=== PATIENT | male | born 1955 | race Caucasian/White ===

== ENCOUNTER 2019-12-29 18:07 | Inpatient (IN) | payer MEDICARE, OTHER ==
[2019-12-29] MEDS ORDERED: Maalox 30 mL Cup PO PRN (20:55)
[2019-12-29] MEDS ORDERED: Magnesium Hydroxide (MOM) 30 mL UDC PO PRN (20:55)
[2019-12-30] MEDS ORDERED: Triamcinolone Acet 0.5% Cream 15 gm TP SCH (09:00)
[2019-12-30] MEDS: Triamcinolone Acet 0.5% Cream 15 gm TP SCH (10:15)
--- NOTE | 2019-12-30 10:26 | Psychiatric Evaluation ---
DATE OF SERVICE: 12/30/2019 HISTORY OF PRESENT ILLNESS: A 64-year-old male coming into the hospital on a hold. Apparently, he was in a town far from his home, not wearing any pants or shorts, disoriented, did not have a shirt or jacket on, it was cold outside. Police were concerned. On [id number], the patient notes he was confused, "I did not know where I was." He states he did not know how he got to that town. The patient is AO now to name, place, situation, month and year. Fair sleep, fair appetite. PAST PSYCHIATRIC HISTORY: He denies. FAMILY HISTORY: Noncontributory. SOCIAL HISTORY: He states he was born in [place], ; 3 kids, they are adults. Lives alone. No drugs, alcohol or tobacco per the patient. MEDICATIONS: Noted. MENTAL STATUS EXAMINATION: Stated age. Fair eye contact. Somewhat unkempt, disheveled, grossly linear. No SI, no HI, no overt psychotic symptoms ____ insight. PROVISIONAL DIAGNOSES: Psychosis, unspecified; possible fugue state, under medical. Please see full H and P. Rule out possible dementia. ESTIMATED LENGTH OF STAY: 5 to 7 days. ASSESSMENT: The patient requiring hospitalization, is confused, concerns for his ability to care for his basic needs. TREATMENT PLAN: Includes group as well as milieu therapy. CONDITIONS FOR DISCHARGE: Improved mood, improved affect, better control of his confusional state. JOB# [id number]
--- NOTE | 2019-12-30 12:33 | History & Physical ---
ADMIT DATE: 12/30/2019 CHIEF COMPLAINT: "I am fine doctor." HISTORY OF PRESENT ILLNESS: A 64-year-old male admitted at [facility] for psychiatric treatment after the patient presented to Emergency Room by EMS when the patient was roaming around an intersection and appeared to be lost. The patient was diagnosed to have gravely disabled and now the patient is admitted here. PAST MEDICAL HISTORY: Remarkable for: 1. Hypertension. 2. Hyperlipidemia. 3. Degenerative joint disease. 4. Chronic skin disorder involving his upper and lower extremity. MEDICATIONS AT HOME: The patient is taking hydroxyzine, ketaconazole, doxycycline, and triamcinolone cream. ALLERGIES: THE PATIENT IS ALLERGIC TO PENICILLIN, DOXYCYCLINE WELL SULFA. SOCIAL HISTORY: The patient is currently retired, used to work for [employer] industry. The patient does admit to smoke cigarettes, alcohol and occasional street drug use. FAMILY MEDICAL HISTORY: Remarkable for liver cancer. PAST SURGICAL HISTORY: None. REVIEW OF SYSTEMS: The patient currently denies any headache, blurred vision, double vision, dysphagia, odynophagia, runny nose, stuffy nose, fever, chills, cough, chest pain, shortness of breath, palpitation, dizziness, nausea, vomiting, diarrhea, dysuria, hematuria, hematochezia, melena. No history of any seizure or syncopal episode. The patient continues to complain of the itchiness involving his upper and lower extremity. PHYSICAL EXAMINATION: GENERAL: The patient is alert, awake, oriented x 3, lying in the bed without any acute distress. VITAL SIGNS: Temperature 98.6, pulse is 74, respiratory rate 18, blood pressure 133/70. HEENT: Normocephalic, atraumatic. Extraocular muscles are intact. Tongue more pink and coated. Oropharynx is congested. Absent upper and lower dentition noted. NECK: Supple. No JVD, no hepatojugular reflux, no lymphadenopathy, thyromegaly or carotid bruit. HEART: Both heart sounds are regular. No S3, no S4, no murmur. CHEST AND LUNGS: Equal in expansion with diffuse expiratory wheezing throughout. ABDOMEN: Soft. No guarding, no rigidity. Liver, spleen palpable. No palpable mass. EXTREMITIES: No edema, no cyanosis or clubbing. Pulses are +1. No calf tenderness noted. SKIN: Remarkable for dry excoriated thick pigmented skin involving upper and lower extremity noted. NEUROLOGIC: Alert, awake and oriented to time, place, person. 2-12 cranial nerves are intact. Power in upper or lower extremities 5+. Sensation to touch are intact. Babinski's in both toes are going down. No cerebellar sign. AVAILABLE DIAGNOSTIC DATA: White count of 7.6, hemoglobin 15.8, platelet count 180. BUN and creatinine is 20 and 1.6, potassium 4.1, chloride 102. TSH of 4.050. Drug screen reported positive for methamphetamine. CT scan of head remarkable for mild left-sided maxillary sinus disease, but no intracranial bleeding noted. CLINICAL IMPRESSION: 1. Hypertension. 2. Elevated TSH, mostly hypothyroidism. 3. Smoking. Nicotine dependence. 4. Most likely chronic obstructive pulmonary disease. 5. Degenerative joint disease. 6. Chronic skin disorder. 7. Polysubstance use. 8. Elevated BUN and creatinine. Suspect the patient may have chronic kidney disease since the patient has a longstanding history of hypertension. PLAN: 1. Psychiatric evaluation and management deferred to psychiatrist. 2. Monitor blood pressure. 3. Antihypertensive medications. 4. Skin disorder treatment as ordered. 5. Albuterol inhaler. 6. Add a long-acting steroid and beta receptor stimulant along with anticholinergic if available. Continue to provide psychiatric treatment by psychiatrist as directed. Followup lab will be done as well. Further recommendations will be given once other lab data are available. The patient has been advised at this time that the patient needs to have primary care physician in order to address his kidney function, elevated TSH as well. At this time, I will recheck his T3 and T4. If it is elevated TSH again, we will consider to put the patient on Synthroid for hypothyroidism. We will continue to follow this patient during the stay in the hospital. I sincerely thank you, Dr. Guadalupe for giving me the opportunity to participate in patient of yours. JOB# [id number]
[2019-12-30] MEDS: Albuterol/Ipratropium Neb 3 ML AERS HHN SCH ×2 (16:14→20:10)
[2019-12-31] MEDS: Albuterol/Ipratropium Neb 3 ML AERS HHN SCH ×4 (01:43→19:56)
[2019-12-31] MEDS: Triamcinolone Acet 0.5% Cream 15 gm TP SCH ×2 (08:30→16:23)
[2019-12-31] MEDS ORDERED: Escitalopram Oxalate 5 mg Tab PO SCH (09:00)
[2019-12-31 16:09] VITALS: BP 128/64
[2020-01-01] MEDS: Albuterol/Ipratropium Neb 3 ML AERS HHN SCH ×5 (01:30→19:38)
[2020-01-01] MEDS: Triamcinolone Acet 0.5% Cream 15 gm TP SCH ×2 (08:12→16:46)
--- NOTE | 2020-01-01 08:22 | Progress Notes ---
DATE: 12/31/2019 PSYCHIATRIC PROGRESS NOTE SUBJECTIVE: Chart was reviewed and the patient interviewed. Also discussed the patient's condition with the staff and reviewed records and labs. The patient is still in a depressed mood and anxious. The patient also is withdrawn and interacted minimally with others. The patient also is still feeling hopeless and helpless. Otherwise, the patient is compliant with taking his medications with no aggression. Otherwise, the patient wants to be left alone. ASSESSMENT: The patient is still depressed. TREATMENT PLAN: We will continue monitoring behavior and condition closely. Also, we will add Lexapro 10 mg every day and work on his ineffective coping. JOB# [id number]
--- NOTE | 2020-01-01 17:14 | Progress Notes ---
DATE: SUBJECTIVE: Chart was reviewed and the patient interviewed. Also discussed the patient's condition with the staff and reviewed records and labs. The patient remains anxious and restless. The patient also still seems to be slightly confused and forgetful and he was asking me if he can leave, but at the same time, he has no place to go and unable to provide any safe plan for his discharge. The patient also still has mood swings and still has irritability and anxiety. Otherwise, the patient is compliant with taking his medications and no side effects of medications. ASSESSMENT: The patient is still depressed and confused and considered to be gravely disabled. TREATMENT PLAN: We will continue to monitor his condition and medications closely. Also, continue to work on his severe anxiety and on his mood swings and irritability. JOB# [id number]
[2020-01-02] MEDS: Albuterol/Ipratropium Neb 3 ML AERS HHN SCH ×4 (01:25→18:04)
--- NOTE | 2020-01-02 07:09 | Progress Notes ---
DATE: SUBJECTIVE: Chart was reviewed and the patient interviewed. Also discussed the patient's condition with the staff and reviewed records and labs. The patient continued to be anxious and restless. The patient also still plans to be confused. He is talking about living with a girlfriend, but case management social worker and staff was not able to confirm that. The patient also is still pacing up and down the unit and easily agitated and depressed at the same time. He also is suspicious and paranoid, but no major behavioral issues. ASSESSMENT: The patient is still depressed and slightly confused and still unable to provide any safe plan for self-care. TREATMENT PLAN: We will continue monitoring his behavior and his condition closely. Also, we will increase Lexapro to 10 mg every day. Also, we will continue to work on discharge plans and on placement issue and so far, case management social worker was not able to confirm his placement. JOB# [id number]
[2020-01-02] MEDS: Triamcinolone Acet 0.5% Cream 15 gm TP SCH ×2 (08:03→16:49)
[2020-01-02] MEDS ORDERED: Escitalopram Oxalate 5 mg Tab PO SCH (09:00)
--- NOTE | 2020-01-02 18:32 | Progress Notes ---
DATE: 01/02/2020 SUBJECTIVE: The patient seen and examined. The patient is lying in the bed comfortably. Discussed with nursing staff about their consent. No new event noted. The patient has been using all the cream as directed by ripening room operator. PHYSICAL EXAMINATION: VITAL SIGNS: The patient's blood pressure is 131/71, pulse is 70, respiratory rate is 18, temperature 97.2. HEENT: No facial asymmetry. Poor dentition noted. NECK: Supple, no JVD. HEART: Both heart sounds are regular. CHEST AND LUNGS: Equal in expansion with expiratory wheezing. ABDOMEN: Soft. Bowel sounds present. No palpable mass. EXTREMITIES: No edema, no cyanosis. NEUROLOGIC: Nonfocal. SKIN: Remarkable for diffuse chronic excoriated changes on upper and lower extremities noted. Medication admission record reviewed. CLINICAL IMPRESSION: 1. Hypertension. 2. Hypothyroidism. 3. Nicotine dependence. 4. Chronic obstructive pulmonary disease. 5. Degenerative joint disease. 6. Chronic skin disorder. 7. Chronic kidney disease III. 8. Polysubstance abuse. PLAN: 1. Psych evaluation and management. 2. Monitor blood pressure. 3. Antihypertensive medicine. 4. Skin treatment as per ripening room operator. 5. General nursing care. 6. P.r.n. inhalation therapy. 7. Follow lab. 8. We will continue to follow this patient during the stay in the hospital. JOB# [id number]
[2020-01-03] MEDS: Albuterol/Ipratropium Neb 3 ML AERS HHN SCH ×4 (00:09→18:29)
--- NOTE | 2020-01-03 08:32 | Progress Notes ---
DATE: SUBJECTIVE: Chart was reviewed and the patient interviewed. Also discussed the patient's condition with the staff and reviewed records and labs. The patient is still anxious and is still in a depressed mood. The patient also is still guarded and withdrawn and interacting minimally with others. Yesterday staff noted that the patient was crying while talking to a friend on the phone. He is still depressed and still has issues with his drinking and needs close directions. At the same time, lining caser working on his placement issue and it seemed that the patient has apartment, but he there has not been able to care for himself and the fact that he has been drinking has affected his both health and his safety. JOB# [id number]
[2020-01-03] MEDS: Triamcinolone Acet 0.5% Cream 15 gm TP SCH ×2 (09:04→17:14)
--- NOTE | 2020-01-03 10:46 | Progress Notes ---
DATE: 01/03/2020 MEDICAL PROGRESS NOTE SUBJECTIVE: The patient seen and examined. The patient is sitting in the chair. The patient is complaining of itchiness. The patient denies any chest pain, shortness of breath, palpitation, dizziness, nausea, or vomiting. PHYSICAL EXAMINATION: VITAL SIGNS: Temperature 97.2, pulse is 91, respiratory rate is 18, blood pressure 131/70. HEENT: No facial asymmetry. Poor dentition. NECK: Supple, no JVD. HEART: Regular. CHEST AND LUNGS: Equal in expansion with mild expiratory wheezing. ABDOMEN: Soft. Bowel sounds are present. No palpable mass. EXTREMITIES: No edema. SKIN: Remarkable for chronic dry excoriated changes involving upper and lower extremities noted. AVAILABLE DIAGNOSTIC DATA: None for my review. CLINICAL IMPRESSION: 1. Chronic obstructive pulmonary disease. 2. Hypertension. 3. Degenerative joint disease. 4. Hypothyroidism. 5. Smoking. 6. Chronic skin disorder. 7. Polysubstance abuse. 8. Debility. 9. Psychotic disorder. PLAN: 1. Symptoms management with Atarax. 2. Psych medication and psych followup. 3. Monitor blood pressure. 4. Skin treatment as per environmental economist. 5. Nutritional support. 6. General nursing care. 7. Follow lab. 8. Care plan reviewed and discussed with staff. [facility]# [id number]
[2020-01-04] MEDS: Albuterol/Ipratropium Neb 3 ML AERS HHN SCH ×2 (01:30→06:24)
[2020-01-04] MEDS: Triamcinolone Acet 0.5% Cream 15 gm TP SCH ×2 (08:52→08:53)
--- NOTE | 2020-01-04 14:56 | Discharge Summary ---
DATE OF DISCHARGE: 01/04/2020 PSYCHIATRIC DISCHARGE SUMMARY FINAL PRIMARY DIAGNOSIS: Major depression, severe, single episode with psychotic features. SECONDARY DIAGNOSES: Alcohol use dependence. Hypertension. Elevated TSH. Degenerative joint disease. Chronic obstructive pulmonary disease. REASON FOR HOSPITALIZATION: The patient was admitted to the hospital on a 5150 hold for increased depression, agitation and confusion, and the patient was transferred from [facility] Emergency Room to the hospital. HOSPITAL COURSE: The patient continued to be anxious and continued to be confused upon admission. The patient was given Lexapro in a dose of 5 mg every day. The patient continued to be depressed and confused, and so the Lexapro was increased to 10 mg every day. Gradually, the patient's affect was brighter. The patient was less depressed and less confused. The patient also interacted more with peers and with others. The patient was discharged from the hospital ____ and the residency was found and the patient went home. PHYSICAL EXAMINATION: Showed no major medical problems. LABORATORY DATA: Blood workup was also basically within normal. AFTER DISCHARGE PLANS: The patient was discharged from the hospital with plans to follow up in my office in [place] and he was given appointment to see me on , 01/10, at 2:00 p.m. and appointment card was given to the patient. Also, a prescription of Lexapro 10 mg every day was given to the patient. JOB# [id number]
== END 2020-01-04 13:10 | disposition home or self-care (01) | DRG 885 ==
LOC: GERO 20:27 → EDBD 20:27 → GERO 12-30 06:15
PROVIDERS: ADMIT Psychiatry & Neurology Psychiatry; ATTEND Psychiatry & Neurology Psychiatry
DX: F32.3 Major depressive disorder, single episode, severe with psychotic features (principal); N18.3 Chronic kidney disease, stage 3 (moderate); E78.5 Hyperlipidemia, unspecified; M19.90 Unspecified osteoarthritis, unspecified site; F17.200 Nicotine dependence, unspecified, uncomplicated; L98.9 Disorder of the skin and subcutaneous tissue, unspecified; I12.9 Hypertensive chronic kidney disease with stage 1 through stage 4 chronic kidney disease, or unspecified chronic kidney disease; R68.89 Other general symptoms and signs; F19.10 Other psychoactive substance abuse, uncomplicated; J44.9 Chronic obstructive pulmonary disease, unspecified; E03.9 Hypothyroidism, unspecified; Z88.0 Allergy status to penicillin; Z88.1 Allergy status to other antibiotic agents; Z88.2 Allergy status to sulfonamides
CPT/HCPCS: 83036-90; 90899; G0410